=== PATIENT | female | born 1990 | race Caucasian/White ===

== ENCOUNTER 2018-08-07 14:33 | Inpatient (IN) | payer OTHER ==
[2018-08-07] MEDS ORDERED: ONDANSETRON 4 MG/2 ML VIAL IVP ONE (15:11)
[2018-08-07] MEDS ORDERED: NS 1,000 ML IV ONE ×2 (15:11→16:08)
--- NOTE | 2018-08-07 15:12 | EDPHY ---
HPI/HX/ROS/PE/MDM Narrative: CHIEF COMPLAINT: Abdominal Pain HISTORY OF PRESENT ILLNESS: This patient is a 27-year-old female with history of Crohn's disease. She presents today complaining of abdominal discomfort and persistent nausea and vomiting ongoing for the past 48 hours. Denies diarrhea. Her abdominal pain in comes in waves and she endorsees associated abdominal distention. She feels very dehydrated and tachycardic. She denies any diarrhea. Her abdominal pain feels similar to prior Crohn's exacerbations, but she does not generally vomit. She endorses subjective fever. She was diagnosed with Crohn's disease around age 14. She has history of appendectomy and bowel resection with a long period of hospitalization. She took Remicade for many years, but discontinued this several years ago. She currently does not take any daily medications. She states she has been taking ibuprofen recently for a pulled muscle in her shoulder. She denies any syncope. No chills, chest pain, diarrhea, urinary complaints, headache. REVIEW OF SYSTEMS: A comprehensive 10 system review of systems is otherwise negative aside from elements mentioned in the history of present illness and medical decision making. PAST MEDICAL HISTORY: Crohn's disease. Appendectomy and bowel resection with prolonged hospitalization. SOCIAL HISTORY: Nonsmoker. Occasional marijuana and alcohol use. No illicit drug use. GI specialist Dr. Piotr Salmon. Recently moved back to [place], three months ago. VITAL SIGNS: Reviewed by me. Tachycardic at 117. Heart rate increases to 130 when sitting up. GENERAL: Well-developed, well-nourished, resting comfortably in no respiratory distress. HEENT: Atraumatic. Eyes: No icterus, no injection. Mouth: dry mucous membranes. No erythema or lesions. Neck: supple with no adenopathy. LUNGS: Clear to auscultation bilaterally, no wheezes, rhonchi or rales. CARDIAC: Regular tachycardia, no rubs, murmurs or gallops. ABDOMEN: Soft, slight distention in the infraumbilical region. No guarding or rebound. BACK: No CVA tenderness. EXTREMITIES: No trauma. No edema. Range of motion is normal throughout. NEURO: Alert and oriented, grossly nonfocal. SKIN: Warm and dry, no rash. PSYCHIATRIC: Normal mentation, no agitation. Portions of this note were transcribed by a medical technologist hematology. I personally performed a history, physical exam, medical decision making, and confirmed accuracy of information the transcribed note. ED Course: 27 y/o female with history of Crohn's disease presents with two-day history of abdominal pain, nausea, and vomiting. On exam, the abdomen is distended, particularly in the infraumbilical region. She is tachycardic, up to 130 with small exertion, and has dry mucous membranes. Plan for abdominal x-ray. IV established. Plan for labs including CBC, chemistries, liver, lipase, UA, BHCG. Plan to administer 4mg IV Zofran and 1L IV NS for symptom relief. The patient declines any pain medications at this time and primarily requests hydration. Reviewed x-ray. Evidence of air-fluid levels suspicious for bowel obstruction. 15:58 Reassessed. Discussed further imaging to rule out bowel obstruction including CT. She is amenable to this. She is feeling somewhat better following fluid administration. 17:[address] June, radiologist. Evidence of early or partial small bowel obstruction. Evidence of recurring Crohn's disease vs enteritis. Small amount of pelvic free fluid possibly related to ovarian cystic disease. 18:46 Spoke with hospitalist service. Dr. Dominguez accepts admission for Crohn' s exacerbation with early SBO, abdominal pain, and vomiting. Patient received a dose of Solu-Medrol IV and nearly immediately had an allergic reaction with complaints of itching in her tongue as well as facial erythema and flushing. On my examination the patient has no wheezes, no facial swelling although her face is slightly flushed, and no rash. She does have a slight angioedema of the uvula and continues to complain that her tongue feels itchy. She received epinephrine 0.3 mL IM as well as Benadryl 50 mg IV. MDM: Differential diagnosis of the patient's nausea and vomiting was considered including but not limited to gastroenteritis, gastritis, alcohol intoxication, withdrawal symptoms, intraabdominal processes including pancreatitis, bowel obstruction , flare of Crohn's disease and medication side effect. - Data Points Imaging Results: Imaging Impressions Abdomen X-Ray 08/07/18 15:12 Impression: Abnormal bowel gas pattern suggestive of some submucosal edema. If there is further clinical concern regarding the patient's symptoms, contrast- enhanced CT imaging could be considered. Abdomen CT 08/07/18 16:24 Impression: 1. Early or partial small bowel obstruction. This patient might benefit from an NG tube. 2. Evidence for recurring Crohn's disease or enteritis of other etiology. 3. Small amount of pelvic free fluid possibly related to ovarian cystic disease. Might this patient have polycystic ovarian syndrome? Results discussed with Dr. Medrano at 5:50 PM. General information for patients regarding this examination can be found at [email or web address] If you have questions or comments about this report, please contact me at (hospital) or [phone] (cell). Imaging: I viewed and interpreted images myself Laboratory Results: Laboratory Results 08/07/18 15:00 08/07/18 15:00 08/07/18 08/07/18 08/07/18 15:00 15:00 15:00 WBC RBC Hgb Hct 48.9 % H % (38.0-47.0) MCV MCH MCHC RDW Plt Count MPV Neut % (Auto) Lymph % (Auto) [place] % (Auto) Eos % (Auto) Baso % (Auto) Nucleat RBC Rel Count Absolute Neuts (auto) Absolute Lymphs (auto) Absolute Monos (auto) Absolute Eos (auto) Absolute Basos (auto) Absolute Nucleated RBC Immature Gran % Immature Gran # ESR 6 MM/HR MM/HR (0-20) Sodium Potassium Chloride Carbon Dioxide Anion Gap BUN Creatinine Estimated GFR Glucose Calcium Total Bilirubin Conjugated Bilirubin Unconjugated Bilirubin AST ALT Alkaline Phosphatase C-Reactive Protein 28.2 mg/L H mg/L (<10.0) Total Protein Albumin Lipase Beta HCG, Qual Urine Color YELLOW Urine Appearance CLEAR Urine pH 5.0 (5.0-7.5) Ur Specific [place] 1.027 (1.002-1.030) Urine Protein NEGATIVE (NEGATIVE) Urine Ketones 2+ H (NEGATIVE) Urine Blood NEGATIVE (NEGATIVE) Urine Nitrate NEGATIVE (NEGATIVE) Urine Bilirubin NEGATIVE (NEGATIVE) Urine Urobilinogen NEGATIVE EU EU (0.2-1.0) Ur Leukocyte Esterase NEGATIVE (NEGATIVE) Urine RBC 3-5 /hpf H /hpf (0-3) Urine WBC 1-3 /hpf /hpf (0-3) Ur Epithelial Cells TRACE /lpf /lpf (NONE-1+) Calcium Oxalate Crystal PRESENT /hpf /hpf (NONE-1+) Uric Acid Crystals PRESENT /hpf /hpf (NONE-1+) Urine Mucus TRACE /lpf /lpf (NONE-1+) Urine Glucose NEGATIVE (NEGATIVE) 08/07/18 08/07/18 08/07/18 15:00 15:00 15:00 WBC 13.84 10^3/uL H 10^3/uL (3.80-9.50) RBC 5.15 10^6/uL 10^6/uL (4.18-5.33) Hgb 16.0 g/dL g/dL (12.6-16.3) Hct 46.7 % % (38.0-47.0) MCV 90.7 fL fL (81.5-99.8) MCH 31.1 pg pg (27.9-34.1) MCHC 34.3 g/dL g/dL (32.4-36.7) RDW 11.9 % % (11.5-15.2) Plt Count 279 10^3/uL 10^3/uL (150-400) MPV 11.2 fL fL (8.7-11.7) Neut % (Auto) 80.3 % H % (39.3-74.2) Lymph % (Auto) 12.1 % L % (15.0-45.0) [place] % (Auto) 7.2 % % (4.5-13.0) Eos % (Auto) 0.0 % L % (0.6-7.6) Baso % (Auto) 0.3 % % (0.3-1.7) Nucleat RBC Rel Count 0.0 % % (0.0-0.2) Absolute Neuts (auto) 11.12 10^3/uL H 10^3/uL (1.70-6.50) Absolute Lymphs (auto) 1.67 10^3/uL 10^3/uL (1.00-3.00) Absolute Monos (auto) 0.99 10^3/uL H 10^3/uL (0.30-0.80) Absolute Eos (auto) 0.00 10^3/uL L 10^3/uL (0.03-0.40) Absolute Basos (auto) 0.04 10^3/uL 10^3/uL (0.02-0.10) Absolute Nucleated RBC 0.00 10^3/uL 10^3/uL (0-0.01) Immature Gran % 0.1 % % (0.0-1.1) Immature Gran # 0.02 10^3/uL 10^3/uL (0.00-0.10) ESR Sodium 138 mEq/L mEq/L (135-145) Potassium 3.9 mEq/L mEq/L (3.5-5.2) Chloride 102 mEq/L mEq/L (97-110) Carbon Dioxide 22 mEq/l mEq/l (22-31) Anion Gap 14 mEq/L mEq/L (6-14) BUN 13 mg/dL mg/dL (7-23) Creatinine 0.6 mg/dL mg/dL (0.6-1.0) Estimated GFR > 60 Glucose 84 mg/dL mg/dL (70-100) Calcium 10.0 mg/dL mg/dL (8.5-10.4) Total Bilirubin 1.1 mg/dL mg/dL (0.1-1.4) Conjugated Bilirubin 0.4 mg/dL mg/dL (0.0-0.5) Unconjugated Bilirubin 0.7 mg/dL mg/dL (0.0-1.1) AST 24 IU/L IU/L (14-46) ALT 25 IU/L IU/L (9-52) Alkaline Phosphatase 91 IU/L IU/L (38-126) C-Reactive Protein Total Protein 8.0 g/dL g/dL (6.3-8.2) Albumin 5.0 g/dL g/dL (3.5-5.0) Lipase 55 IU/L IU/L (23-300) Beta HCG, Qual NEGATIVE Urine Color Urine Appearance Urine pH Ur Specific [place] Urine Protein Urine Ketones Urine Blood Urine Nitrate Urine Bilirubin Urine Urobilinogen Ur Leukocyte Esterase Urine RBC Urine WBC Ur Epithelial Cells Calcium Oxalate Crystal Uric Acid Crystals Urine Mucus Urine Glucose Medications Given: Discontinued Medications Diphenhydramine HCl (Benadryl Injection) 50 mg IVP EDNOW ONE Stop: 08/07/18 18:50 Last Admin: 08/07/18 18:53 Dose: 50 mg Epinephrine HCl (Epinephrine) 0.3 mg IM EDNOW ONE Stop: 08/07/18 18:54 Last Admin: 08/07/18 19:00 Dose: 0.3 mg Sodium Chloride (Ns) 1,000 mls @ 0 mls/hr IV EDNOW ONE; Wide Open PRN Reason: Protocol Stop: 08/07/18 15:12 Last Admin: 08/07/18 15:33 Dose: 1,000 mls Sodium Chloride (Ns) 1,000 mls @ 0 mls/hr IV ONCE ONE; Wide Open PRN Reason: Protocol Stop: 08/07/18 16:09 Last Admin: 08/07/18 16:34 Dose: 1,000 mls Methylprednisolone Sodium Succinate (Solu-Medrol) 125 mg IVP EDNOW ONE Stop: 08/07/18 18:22 Last Admin: 08/07/18 18:40 Dose: 125 mg Ondansetron HCl (Zofran) 4 mg IVP EDNOW ONE Stop: 08/07/18 15:12 Last Admin: 08/07/18 15:33 Dose: 4 mg General Time Seen by Provider: 08/07/18 14:59 Initial Vital Signs: Initial Vital Signs Temperature (C) 36.6 C 08/07/18 14:43 Heart Rate 117 H 08/07/18 14:43 Respiratory Rate 20 08/07/18 14:43 Blood Pressure 115/86 H 08/07/18 14:43 O2 Sat (%) 99 08/07/18 14:43 O2 Delivery Mode Room Air Allergies/Adverse Reactions: methylprednisolone [From Solu-Medrol] Allergy (Severe, Verified 08/07/18 21:09) Swelling/neck,face,throat Home Medications: Medication Instructions Recorded Amphet Asp and D/Amphet [Adderall 1 tab PO DAILY PRN 08/07/18 10 MG (*)] Departure - Departure Disposition: [facility] [place] [facility] Acute Clinical Impression: Crohns disease Qualifiers: Gastrointestinal tract location: small intestine Digestive disease complication type: with intestinal obstruction Qualified Code(s): K50.012 - Crohn's disease of small intestine with intestinal obstruction Vomiting Qualifiers: Vomiting type: unspecified Vomiting Intractability: non-intractable Nausea presence: with nausea Qualified Code(s): R11.2 - Nausea with vomiting, unspecified Abdominal pain Qualifiers: Abdominal location: generalized Qualified Code(s): R10.84 - Generalized abdominal pain Condition: Fair Report Scribed for: Era Medrano Report Scribed by: Sheryl Crouch Date of Report: 08/07/18 Time of Report: 15:12
[2018-08-07 15:19] LABS: PLATELET COUNT 279 10^3/uL (150-400)
[2018-08-07] MEDS ORDERED: IOHEXOL 300 mgI/ML (OMNIPAQUE) 150 ML BTL IV ONE (16:26)
[2018-08-07] MEDS ORDERED: methylPREDNISolone SOD SUCC 125 MG/2 ML VIAL IVP ONE (18:21)
[2018-08-07] MEDS ORDERED: EPINEPHrine 1 MG/ML INJ IM ONE (18:53)
[2018-08-07] MEDS ORDERED: HYDROmorphONE/DILAUDID 1 MG/ML INJ IVP PRN (19:27)
[2018-08-07] MEDS ORDERED: ONDANSETRON DISINTEGRATING 4 MG TAB PO PRN (19:27)
[2018-08-07] MEDS ORDERED: ONDANSETRON 4 MG/2 ML VIAL IVP PRN (19:27)
[2018-08-07] MEDS ORDERED: ACETAMINOPHEN 325 MG TAB PO PRN (19:27)
[2018-08-07] MEDS ORDERED: ADDERALL 10 MG TAB PO PRN (19:30)
[2018-08-07] MEDS ORDERED: NS 1,000 ML IV SCH (19:30)
[2018-08-07] MEDS ORDERED: PROMETHAZINE HCL 25 MG/ML INJ IVP PRN (19:32)
--- NOTE | 2018-08-07 19:42 | PDGENHP ---
<Marianne Gonzalez - Last Filed: 08/07/18 19:58> History and Physical - Chief Complaint Abdominal pain, nausea, vomiting - History of Present Illness HPI: 27 y/o female with history of Crohn's disease presents to the emergency room after 2 days worth of abdominal pain, nausea, and vomiting. She reports these are similar symptoms to when she has a Crohn's flare however this time around she is vomiting which is new to her. She does not take any medications for her Crohn's disease, was on Remicade for years but has discontinued use several years ago. She recently took ibuprofen for an injured shoulder but doesn't believe this would be causing her symptoms. Her abdominal pain which is described as cramping comes in waves and when it comes, it is very intense. Unable to keep anything down fluid-young and has not had much to eat for 2 days. Denies hematemesis. Denies chest pains, palpitations, SOB, diarrhea, fevers, chills, dysuria. Endorses normal menstrual cycles and BMs. She is being admitted for observation and conservative treatment. Past Medical History 1. Crohn's disease (diagnosed when she was 14 y/o) Past Surgical History 1. Appendectomy and partial colon removal s/p Crohn's diagnosis when she was 14 y/o Social 1. Recently moved back to [place] from [place] 3 months ago. 2. Travels for work, can work remotely 3. Denies tobacco or illicit drug use. Rarely drinks alcohol. History Information - Allergies/Home Medication List Allergies/Adverse Reactions: methylprednisolone [From Solu-Medrol] Adverse Reaction (Verified 08/07/18 19:35) Swelling/neck,face,throat Home Medications: Amphet Asp and D/Amphet [Adderall 10 MG (*)] 1 tab PO DAILY PRN 08/07/18 [Last Taken Unknown] I have personally reviewed and updated: family history, medical history, social history, surgical history Past Medical History: See HPI list - Surgical History Additional surgical history: See HPI list - Family History Positive for: non-pertinent - Social History Smoking Status: Never smoked Alcohol Use: Rarely Drug Use: Marijuana Review of Systems Review of Systems: ROS: 10pt was reviewed & negative except for what was stated in HPI & below Constitutional: Reports: malaise, recent illness EENMT: Reports: no symptoms Cardiac: Reports: no symptoms Respiratory: Reports: no symptoms Gastrointestinal: Reports: vomitting, abdominal pain, abdominal distention, nausea Genitourinary: Reports: no symptoms Muscolosketal: Reports: no symptoms Skin: Reports: no symptoms Neurological: Reports: no symptoms Hematologic/Lymphatic: Reports: no symptoms Immunologic/Allergy: Reports: other (Solu-medrol) Physical Exam Physical Exam: Lab data and imaging were reviewed. Case discussed with admitting physician, Dr. Franky Dominguez. WBC: 13.[address]: early or partial bowel obstruction. Evidence for recurring Crohn' s disease or enteritis. Small amount of pelvic free fluid possibly related to ovarian cystic disease. Temp Pulse Resp BP Pulse Ox 36.6 C 122 H 18 122/77 H 97 08/07/18 14:43 08/07/18 18:45 08/07/18 18:45 08/07/18 18:45 08/07/18 18:45 Constitutional: no apparent distress, appears nourished, uncomfortable, other ( Diaphoretic) Eyes: PERRL, anicteric sclera, EOMI Ears, Nose, Mouth, Throat: hearing normal, ears appear normal, no oral mucosal ulcers, dry mucous membranes Cardiovascular: regular rate and rhythym, no murmur, rub, or gallop, tachycardia Peripheral Pulses: 2+: dorsalis-pedis (R) (Radial 2+), dorsalis-pedis (L) ( Radial 2+) Respiratory: no respiratory distress, no rales or rhonchi, clear to auscultation Gastrointestinal: normoactive bowel sounds, tenderness, distension Genitourinary: no bladder fullness, no bladder tenderness Skin: warm, normal color, no rashes or abrasions, no fluctuance, no induration, No mottled Musculoskeletal: full muscle strength, no muscle tenderness, normal joint ROM, no joint effusions Neurologic: AAOx3, sensation intact bilaterally, CN II-XII Intact Psychiatric: interacting appropriately, not anxious, not encephalopathic, thought process linear Lymph, Heme, Immunologic: no cervical LAD, no supraclavicular LAD Lab Data & Imaging Review 08/07/18 15:00 08/07/18 15:00 WBC 13.84 10^3/uL (3.80-9.50) H 08/07/18 15:00 RBC 5.15 10^6/uL (4.18-5.33) 08/07/18 15:00 Hgb 16.0 g/dL (12.6-16.3) 08/07/18 15:00 Hct 46.7 % (38.0-47.0) 08/07/18 15:00 MCV 90.7 fL (81.5-99.8) 08/07/18 15:00 MCH 31.1 pg (27.9-34.1) 08/07/18 15:00 MCHC 34.3 g/dL (32.4-36.7) 08/07/18 15:00 RDW 11.9 % (11.5-15.2) 08/07/18 15:00 Plt Count 279 10^3/uL (150-400) 08/07/18 15:00 MPV 11.2 fL (8.7-11.7) 08/07/18 15:00 Neut % (Auto) 80.3 % (39.3-74.2) H 08/07/18 15:00 Lymph % (Auto) 12.1 % (15.0-45.0) L 08/07/18 15:00 [place] % (Auto) 7.2 % (4.5-13.0) 08/07/18 15:00 Eos % (Auto) 0.0 % (0.6-7.6) L 08/07/18 15:00 Baso % (Auto) 0.3 % (0.3-1.7) 08/07/18 15:00 Nucleat RBC Rel Count 0.0 % (0.0-0.2) 08/07/18 15:00 Absolute Neuts (auto) 11.12 10^3/uL (1.70-6.50) H 08/07/18 15:00 Absolute Lymphs (auto) 1.67 10^3/uL (1.00-3.00) 08/07/18 15:00 Absolute Monos (auto) 0.99 10^3/uL (0.30-0.80) H 08/07/18 15:00 Absolute Eos (auto) 0.00 10^3/uL (0.03-0.40) L 08/07/18 15:00 Absolute Basos (auto) 0.04 10^3/uL (0.02-0.10) 08/07/18 15:00 Absolute Nucleated RBC 0.00 10^3/uL (0-0.01) 08/07/18 15:00 Immature Gran % 0.1 % (0.0-1.1) 08/07/18 15:00 Immature Gran # 0.02 10^3/uL (0.00-0.10) 08/07/18 15:00 Sodium 138 mEq/L (135-145) 08/07/18 15:00 Potassium 3.9 mEq/L (3.5-5.2) 08/07/18 15:00 Chloride 102 mEq/L (97-110) 08/07/18 15:00 Carbon Dioxide 22 mEq/l (22-31) 08/07/18 15:00 Anion Gap 14 mEq/L (6-14) 08/07/18 15:00 BUN 13 mg/dL (7-23) 08/07/18 15:00 Creatinine 0.6 mg/dL (0.6-1.0) 08/07/18 15:00 Estimated GFR > 60 08/07/18 15:00 Glucose 84 mg/dL (70-100) 08/07/18 15:00 Calcium 10.0 mg/dL (8.5-10.4) 08/07/18 15:00 Total Bilirubin 1.1 mg/dL (0.1-1.4) 08/07/18 15:00 Conjugated Bilirubin 0.4 mg/dL (0.0-0.5) 08/07/18 15:00 Unconjugated Bilirubin 0.7 mg/dL (0.0-1.1) 08/07/18 15:00 AST 24 IU/L (14-46) 08/07/18 15:00 ALT 25 IU/L (9-52) 08/07/18 15:00 Alkaline Phosphatase 91 IU/L (38-126) 08/07/18 15:00 Total Protein 8.0 g/dL (6.3-8.2) 08/07/18 15:00 Albumin 5.0 g/dL (3.5-5.0) 08/07/18 15:00 Lipase 55 IU/L (23-300) 08/07/18 15:00 Beta HCG, Qual NEGATIVE 08/07/18 15:00 Urine Color YELLOW 08/07/18 15:00 Urine Appearance CLEAR 08/07/18 15:00 Urine pH 5.0 (5.0-7.5) 08/07/18 15:00 Ur Specific [place] 1.027 (1.002-1.030) 08/07/18 15:00 Urine Protein NEGATIVE (NEGATIVE) 08/07/18 15:00 Urine Ketones 2+ (NEGATIVE) H 08/07/18 15:00 Urine Blood NEGATIVE (NEGATIVE) 08/07/18 15:00 Urine Nitrate NEGATIVE (NEGATIVE) 08/07/18 15:00 Urine Bilirubin NEGATIVE (NEGATIVE) 08/07/18 15:00 Urine Urobilinogen NEGATIVE EU (0.2-1.0) 08/07/18 15:00 Ur Leukocyte Esterase NEGATIVE (NEGATIVE) 08/07/18 15:00 Urine RBC 3-5 /hpf (0-3) H 08/07/18 15:00 Urine WBC 1-3 /hpf (0-3) 08/07/18 15:00 Ur Epithelial Cells TRACE /lpf (NONE-1+) 08/07/18 15:00 Calcium Oxalate Crystal PRESENT /hpf (NONE-1+) 08/07/18 15:00 Uric Acid Crystals PRESENT /hpf (NONE-1+) 08/07/18 15:00 Urine Mucus TRACE /lpf (NONE-1+) 08/07/18 15:00 Urine Glucose NEGATIVE (NEGATIVE) 08/07/18 15:00 Assessment & Plan Plan: This is a 27 y/o female with history of Crohn's disease presenting to the ER after enduring a 2-day worth stint of intermittent abdominal pain which is described as cramping mostly to the lower abdominal quadrants, nausea and vomiting; she is unable to keep anything down. 1. Abdominal pain: suspected Crohn's flare up vs SBO vs ovarian cysts -NPO, ok with ice chips. Assess her throughout the night and if she is improving, may advance diet to clears -She received Solu-medrol in ER however it appears she had an allergic reaction to this as she reports her tongue started to tingle and swell. She was given IVP Benadryl and IM Epi; her allergic reaction symptoms have resolved. No difficulty swallowing. Continue to monitor. Pain management PO/IVP PRN. -Hot packs -Consider consulting ob-well service floor worker for her multiple ovarian cysts should her symptoms not resolve; per pt, menstrual cycles have been normal. 2. Nausea and vomiting -Received 4 mg Zofran in ER; continue anti-emetics PRN -Received 2L NS in ER; continue IVF -Mild leukocytosis (13.84), afebrile, tachycardic --I do not think she has an infectious process taking place but instead a reactive process. Her tachycardia most likely is d/t fluid loss. Will replace and recheck CBC/BMP tomorrow. Diet: NPO for now VTE ppx: Up ad lyle in room Code: Full Dispo: Admit to obs <Franky Dominguez - Last Filed: 08/07/18 20:48> History and Physical - History of Present Illness Review of Systems Review of Systems: Physical Exam Physical Exam: Temp Pulse Resp BP Pulse Ox 36.6 C 100 16 94/46 L 95 08/07/18 14:43 08/07/18 20:07 08/07/18 20:07 08/07/18 20:07 08/07/18 20:07 Lab Data & Imaging Review 08/07/18 15:00 08/07/18 15:00 WBC 13.84 10^3/uL (3.80-9.50) H 08/07/18 15:00 RBC 5.15 10^6/uL (4.18-5.33) 08/07/18 15:00 Hgb 16.0 g/dL (12.6-16.3) 08/07/18 15:00 Hct 46.7 % (38.0-47.0) 08/07/18 15:00 MCV 90.7 fL (81.5-99.8) 08/07/18 15:00 MCH 31.1 pg (27.9-34.1) 08/07/18 15:00 MCHC 34.3 g/dL (32.4-36.7) 08/07/18 15:00 RDW 11.9 % (11.5-15.2) 08/07/18 15:00 Plt Count 279 10^3/uL (150-400) 08/07/18 15:00 MPV 11.2 fL (8.7-11.7) 08/07/18 15:00 Neut % (Auto) 80.3 % (39.3-74.2) H 08/07/18 15:00 Lymph % (Auto) 12.1 % (15.0-45.0) L 08/07/18 15:00 [place] % (Auto) 7.2 % (4.5-13.0) 08/07/18 15:00 Eos % (Auto) 0.0 % (0.6-7.6) L 08/07/18 15:00 Baso % (Auto) 0.3 % (0.3-1.7) 08/07/18 15:00 Nucleat RBC Rel Count 0.0 % (0.0-0.2) 08/07/18 15:00 Absolute Neuts (auto) 11.12 10^3/uL (1.70-6.50) H 08/07/18 15:00 Absolute Lymphs (auto) 1.67 10^3/uL (1.00-3.00) 08/07/18 15:00 Absolute Monos (auto) 0.99 10^3/uL (0.30-0.80) H 08/07/18 15:00 Absolute Eos (auto) 0.00 10^3/uL (0.03-0.40) L 08/07/18 15:00 Absolute Basos (auto) 0.04 10^3/uL (0.02-0.10) 08/07/18 15:00 Absolute Nucleated RBC 0.00 10^3/uL (0-0.01) 08/07/18 15:00 Immature Gran % 0.1 % (0.0-1.1) 08/07/18 15:00 Immature Gran # 0.02 10^3/uL (0.00-0.10) 08/07/18 15:00 Sodium 138 mEq/L (135-145) 08/07/18 15:00 Potassium 3.9 mEq/L (3.5-5.2) 08/07/18 15:00 Chloride 102 mEq/L (97-110) 08/07/18 15:00 Carbon Dioxide 22 mEq/l (22-31) 08/07/18 15:00 Anion Gap 14 mEq/L (6-14) 08/07/18 15:00 BUN 13 mg/dL (7-23) 08/07/18 15:00 Creatinine 0.6 mg/dL (0.6-1.0) 08/07/18 15:00 Estimated GFR > 60 08/07/18 15:00 Glucose 84 mg/dL (70-100) 08/07/18 15:00 Calcium 10.0 mg/dL (8.5-10.4) 08/07/18 15:00 Total Bilirubin 1.1 mg/dL (0.1-1.4) 08/07/18 15:00 Conjugated Bilirubin 0.4 mg/dL (0.0-0.5) 08/07/18 15:00 Unconjugated Bilirubin 0.7 mg/dL (0.0-1.1) 08/07/18 15:00 AST 24 IU/L (14-46) 08/07/18 15:00 ALT 25 IU/L (9-52) 08/07/18 15:00 Alkaline Phosphatase 91 IU/L (38-126) 08/07/18 15:00 Total Protein 8.0 g/dL (6.3-8.2) 08/07/18 15:00 Albumin 5.0 g/dL (3.5-5.0) 08/07/18 15:00 Lipase 55 IU/L (23-300) 08/07/18 15:00 Beta HCG, Qual NEGATIVE 08/07/18 15:00 Urine Color YELLOW 08/07/18 15:00 Urine Appearance CLEAR 08/07/18 15:00 Urine pH 5.0 (5.0-7.5) 08/07/18 15:00 Ur Specific Pec[place]iar 1.027 (1.002-1.030) 08/07/18 15:00 Urine Protein NEGATIVE (NEGATIVE) 08/07/18 15:00 Urine Ketones 2+ (NEGATIVE) H 08/07/18 15:00 Urine Blood NEGATIVE (NEGATIVE) 08/07/18 15:00 Urine Nitrate NEGATIVE (NEGATIVE) 08/07/18 15:00 Urine Bilirubin NEGATIVE (NEGATIVE) 08/07/18 15:00 Urine Urobilinogen NEGATIVE EU (0.2-1.0) 08/07/18 15:00 Ur Leukocyte Esterase NEGATIVE (NEGATIVE) 08/07/18 15:00 Urine RBC 3-5 /hpf (0-3) H 08/07/18 15:00 Urine WBC 1-3 /hpf (0-3) 08/07/18 15:00 Ur Epithelial Cells TRACE /lpf (NONE-1+) 08/07/18 15:00 Calcium Oxalate Crystal PRESENT /hpf (NONE-1+) 08/07/18 15:00 Uric Acid Crystals PRESENT /hpf (NONE-1+) 08/07/18 15:00 Urine Mucus TRACE /lpf (NONE-1+) 08/07/18 15:00 Urine Glucose NEGATIVE (NEGATIVE) 08/07/18 15:00 Assessment & Plan Plan: Chart reviewed, patient personally examined, and case discussed with Era Gonzalez NP. Agree with her plan as outlined above. Please see my separate note for additional details.
--- NOTE | 2018-08-07 20:39 | HOSPPROG ---
Hospitalist Progress Note Assessment/Plan: Case discussed with Era Gonzalez NP and I agree with her plan with the following exceptions: Briefly, 27yo F with Crohn's disease s/p remote colonic resection not currently on therapy presents with 2-3 of acute onset abdominal pain, distention, nausea and vomiting. No diarrhea or blood in stools. No fevers. Unable to tolerate PO. Exam with distended and tender but not peritoneal abdomen. She is tachycardic but afebrile and normotensive. Labs show leukocytosis with normal hemoglobin, BMP, and LFTs. CT shows small bowel inflammation, dilated loops of small bowel with some free fluid in the pelvis, and shotty mesenteric adenopathy. She also has some ovarian cysts. In the ED, she was given 125mg IV solumedrol (which she ? had reaction - tongue itching and flushing- and was given benadryl and IM epinephrine). 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 Assessment/Plan: 27yo w/Crohn's not on therapy here with suspected acute Crohn's flare complicated by ileus. 1. Acute Crohn's flare: Will start solumedrol IV 60mg q6h tomorrow (I do not think she had a true allergic reaction to this). GI consultation in AM. Check ESR/CRP. 2. Ileus: Bowel rest. IVF. If not improving, would place NG tube. 3. Abdominal pain, nausea/vomiting: Related to above. Pain and nausea control PRN. 4. Ovarian cysts: Unlikely to be related to above symptoms. Normal menstrual cycles. Outpatient follow up. 5. SIRS syndrome: Related to #1. Monitor vitals, WBC. No indication for abx. VTE ppx: SCDs Diet: NPO except sips/chips Dispo: Admit under observation Objective: Vital Signs Temp Pulse Resp BP Pulse Ox 36.6 C 100 16 94/46 L 95 08/07/18 14:43 08/07/18 20:07 08/07/18 20:07 08/07/18 20:07 08/07/18 20:07 ICD10 Worksheet Patient Problems: Problems Problem Status Onset Crohn's colitis Acute - ICD10 Problem Qualifiers (1) Crohn's colitis
[2018-08-08 06:21] LABS: PLATELET COUNT 185 10^3/uL (150-400)
[2018-08-08] MEDS ORDERED: methylPREDNISolone SOD SUCC 125 MG/2 ML VIAL IVP SCH (08:00)
--- NOTE | 2018-08-08 14:47 | HOSPPROG ---
Hospitalist Progress Note Assessment/Plan: Viky is a 27 y/o s/p colonic resection who presented w abdominal pain, distention, nausea. She has a hx of Crohns. She was unable to tolerate any PO. Today she is tolerating clear liquids and wants to go home, will do a trial of a regular diet and see how she does. She is tearful and wants to go home because it is her birthday tomorrow. Will see how she does with a regular diet. Spoke w Dr Bhatt who would like her monitored overnight. He would like to see her and be sure she has follow up. Has not seen a career based intervention coordinator in 2 years. *Acute Crohn's flare -solumedrol IV 60mg q6h (this had not been given due to concern she had an allergic reaction in the ER to the Solumedrol) -will dc and start prednisone 40 mg now *tachycardia -resolved * Ileus -has hypoactive bowel sounds, but eating clears without difficulty *Abdominal pain, nausea/vomiting -none further, could be multifactorial r/t Crohn and ovarian cysts *plan: reviewed her care w Dr Bhatt, he will see her today. She needs another midnight stay to be sure she can eat and drink without pain. will dc iv solumedrol, start oral prednisone, dc fluids. I told Viky I will see her early tomorrow and if stable, will dc due to it being her birthday. Subjective: Viky said her abdominal pain has resolved. Objective: Vital Signs Temp Pulse Resp BP Pulse Ox 36.6 C 81 16 103/66 100 08/08/18 11:25 08/08/18 11:25 08/08/18 11:25 08/08/18 11:25 08/08/18 11:25 Laboratory Results 08/08/18 05:48 08/08/18 05:48 - Physical Exam Constitutional: no apparent distress, appears nourished, not in pain Eyes: PERRL Ears, Nose, Mouth, Throat: hearing normal Cardiovascular: regular rate and rhythym Respiratory: no respiratory distress Gastrointestinal: soft, non-tender abdomen, No normoactive bowel sounds ( hypoactive) Skin: warm Musculoskeletal: full muscle strength Neurologic: AAOx3 Psychiatric: interacting appropriately ICD10 Worksheet Patient Problems: Problems Problem Status Onset Abdominal pain Acute Crohn's colitis Acute Crohns disease Acute Vomiting Acute
--- NOTE | 2018-08-08 15:49 | ASMTCMCOM ---
CM Note CM Note Notes: Pt is a 27 y/o female admitted for abdominal pain, nausea and vomiting. Pt will d/c independent when medically stable. No therapies ordered at this time. CM available for changes. Plan: Independent Date Signed: 08/08/2018 03:48 PM Electronically Signed By:LOLITA Lind
[2018-08-08] MEDS: predniSONE 20 MG TAB PO SCH (16:53)
--- NOTE | 2018-08-08 17:35 | PDMN ---
Medical Necessity Medical necessity: Change to inpt as of 08/08/18 @ 16:26 per MD order and MCG M- 200, Ileus, 2 days. 27 y/o w/hx Crohn's and colonic resection presented w/abd pain, distention, nausea, and unable to tolerate PO, admitted w/Crohn's flare. Upgraded to inpt for presence of ileus and still unable to tolerate PO, ongoing med nec care, est LOS>2MN.
--- NOTE | 2018-08-08 18:28 | SOAPPROG ---
[facility] Progress Note Assessment/Plan: Assessment:Plan: 08/08/18 18:24 see full dictated consult to follow 27 y/o with hx Crohns of her SB x 12-13 years - had TI resection at dx then did wll on Remicade for years stopped secondary to infections now off x 1 year with recurrence of SBO she is in denial and isn't very accepting of the meds needed to treat her dz doesn't sound like she has any good support from her family lives with her boyfriend PO prednisone she needs to research biologics such as Entyvio, Stelara, Humira there are many ways to try to decrease side effects from biologics if she will accept their use asked her to go to www.ccfa.org to start her research I am not optimistic that she will be able to change her thinking about her dz process in the near future will follow Michael Laboy MD [phone] Objective: Vital Signs Temp Pulse Resp BP Pulse Ox 36.7 C 82 16 116/62 98 08/08/18 15:18 08/08/18 15:18 08/08/18 15:18 08/08/18 15:18 08/08/18 15:18 ICD10 Worksheet Patient Problems: Problems Problem Status Onset Abdominal pain Acute Crohn's colitis Acute Crohns disease Acute Vomiting Acute
[2018-08-09 09:08] VITALS: BP 104/73
--- NOTE | 2018-08-09 09:30 | HOSPPROG ---
Hospitalist Progress Note Assessment/Plan: Viky is a 27 y/o s/p colonic resection who presented w abdominal pain, distention, nausea. She has a hx of Crohns. She was unable to tolerate any PO. Today she is tolerating a regular diet *Acute Crohn's flare, small bowel -solumedrol IV 60mg q6h (this had not been given due to concern she had an allergic reaction in the ER to the Solumedrol) -tolerating prednisone - dc on a slow taper -script for Apriso sent to the pharmacy *tachycardia -resolved * Ileus -resolved *Abdominal pain, nausea/vomiting -none further, could be multifactorial r/t Crohn and ovarian cysts *plan: Dr Bhatt and myself met henok Salmon this morning reviewing w her the importance of addressing her disease, she has been tearful. Hoping she will f/ u. Will place her on a slow steroid wean and Subjective: Viky isn't having pain. Objective: Vital Signs Temp Pulse Resp BP Pulse Ox 36.9 C 63 12 104/73 99 08/09/18 08:00 08/09/18 08:00 08/09/18 08:00 08/09/18 08:00 08/09/18 08:00 08/08/18 08/09/18 08/10/18 05:59 05:59 05:59 Intake Total 250 Balance 250 - Physical Exam Constitutional: no apparent distress, appears nourished, not in pain Eyes: PERRL Ears, Nose, Mouth, Throat: ears appear normal Respiratory: no respiratory distress Gastrointestinal: normoactive bowel sounds, soft, non-tender abdomen Skin: warm Musculoskeletal: full muscle strength Neurologic: AAOx3 Psychiatric: interacting appropriately ICD10 Worksheet Patient Problems: Problems Problem Status Onset Abdominal pain Acute Crohn's colitis Acute Crohns disease Acute Vomiting Acute
[2018-08-09] MEDS: predniSONE 20 MG TAB PO SCH (09:59)
--- NOTE | 2018-08-09 10:32 | SOAPPROG ---
[facility] Progress Note Assessment/Plan: Assessment:Plan: 1) SB Crohn's - oral Prednisone at 40mg taper by 10mg per week of no sx's to 20mg then by 5 mg increments. Start mesalamine mesd - Pentasa best SB med but $$ $ and QID. Apriso 4 tabs once daily or Asacol tid. She does need biologics but hesitant secondary to her previous side effects. I asked her to research on [email or web address] and talk to me at office appt. Entyvio maybe a good choice for her but we could use the TNF's and check drug levels or Stelara 2) diet - regular - avoid raw vegies for now 3) dispo - maybe home today . I will hvae my office call her and schedule appt within few weeks. discussed with Meghna Moore 08/09/18 10:29 Subjective: CC- SBO from Crohn's feeling better, tolerating solid food w/o sig issue Objective: Vital Signs Temp Pulse Resp BP Pulse Ox 36.9 C 63 12 104/73 99 08/09/18 08:00 08/09/18 08:00 08/09/18 08:00 08/09/18 08:00 08/09/18 08:00 08/08/18 08/09/18 08/10/18 05:59 05:59 05:59 Intake Total 250 Balance 250 A+Ox3 CTA S1S2 +BS, soft still with some right sided tenderness no r/g ICD10 Worksheet Patient Problems: Problems Problem Status Onset Abdominal pain Acute Crohn's colitis Acute Crohns disease Acute Vomiting Acute
--- NOTE | 2018-08-09 12:23 | GDS ---
[f rep st] DISCHARGE SUMMARY DISCHARGE DIAGNOSES: 1. Acute Crohn flare of the small bowel. 2. Tachycardia. 3. Ileus. 4. Abdominal pain with associated nausea and vomiting. CONSULTATIONS: Michael Bhatt MD. HOSPITAL COURSE: Briefly, the patient is a very sweet 28-year-old female, who has a history of Crohn disease. She presented to the emergency room after 2 days with abdominal pain, nausea, and vomiting. These symptoms are similar to when she had a Crohn flare. She does not take any medications. She had been on Remicade in the past, but discontinued use of this because she kept getting recurrent infections. She was seen and evaluated by Dr. Bhatt. He recommended that she do an oral prednisone taper. He also will start her on Apriso tablets. She definitely needs biologics, but she has been scared due to the previous side effects. Dr. Bhatt has given her a website to look at. She could consider Entyvio or Stelara for treatment. I have written all this out for her in detail. She needs followup with Dr. Bhatt. HOSPITAL COURSE PER PROBLEM: 1. Acute Crohn flare. She was given a dose of Solu-Medrol in the emergency room. There was concern she had an allergic reaction. She became red and tachycardic, and felt her tongue had thickened. This was stopped. She is on oral prednisone. She has done well with this. She will be on Apriso. 2. Tachycardia, resolved. 3. Ileus, resolved. 4. Abdominal pain with associated nausea and vomiting, resolved. DISCHARGE CONDITION: Stable. VITAL SIGNS: Blood pressure is 104/73, heart rate 63, respiratory rate 12, O2 saturation on room air 99%, and temperature 36.9 Celsius. MEDICATIONS AT DISCHARGE: Please see the EMR. DISCHARGE INSTRUCTIONS: 1. Avoid a high-fiber diet, in particular fresh vegetables. 2. Wean slowly down the prednisone. 3. Follow up closely with Dr. Bhatt. TIME SPENT ON DISCHARGE: Greater than 30 minutes meeting and discussing the patient's care. /[id number]/MODL MTDD
--- NOTE | 2018-08-10 09:00 | GCON ---
[f rep st] CONSULTATION DATE OF CONSULTATION: 08/08/2018 REFERRING PHYSICIAN: Meghna Moore NP INDICATION FOR CONSULTATION: Crohn disease with recurrent small-bowel obstruction, abdominal pain, abnormal imaging. HISTORY OF PRESENT ILLNESS: I have been asked by Meghna Moore to see the patient in consultation for chief complaint of recurrent Crohn disease. The patient is a pleasant 27-year-old female who had Crohn disease diagnosed when she was about 14 or 15 years old. At that point, she was initially treated with terminal ileal and cecal resection and then she was placed on Remicade. She does not remember being on steroids, mesalamine, immunomodulators. She was on Remicade for many years and had very good control of her disease. However, she developed many different infections, the worst which were continued bacterial vaginosis. She had a history of abnormal cells on her cervix, status post a LEEP procedure and she was very concerned about these recurrent infections and therefore stopped the Remicade approximately a year ago. She did not have any symptoms until she presented with symptoms of obstruction. She had been on Remicade for a number of years. She presented to the emergency room and had a CT scan that showed recurrent small-bowel obstruction. She was admitted and had rapid response to steroids and I am called to help evaluate and treat her recurrent Crohn disease. PAST MEDICAL HISTORY: Crohn disease diagnosed when she was age 14. PAST SURGICAL HISTORY: Initial appendectomy and then a partial colon removal with terminal ileum and cecum/ascending colon. FAMILY HISTORY: No first degree relatives with any inflammatory bowel disease. She says she is not very close to her family. MEDICATIONS: Medications as an outpatient were essentially nothing. As an outpatient, Adderall. Inpatient, Tylenol p.r.n., Adderall 10 mg p.r.n., Dilaudid p.r.n., Zofran p.r.n., IV Solu-Medrol she got in the ER and I have asked the hospitalist to start prednisone. ALLERGIES: She had some possible reactions to Solu-Medrol in the emergency room but I am not sure if it was truly an allergic reaction. SOCIAL HISTORY: She does not smoke. She rarely drinks alcohol. She recently moved back to [place] from [place]. REVIEW OF SYSTEMS: A complete review of systems was performed and is negative other than in the HPI. Pertinent positives include abdominal pain, nausea, vomiting related to a bowel obstruction. PHYSICAL EXAM: GENERAL: Well-developed, well-nourished young female in no acute distress. VITAL SIGNS: Blood pressure is 105/60, pulse is 81, respiratory rate 18, she is 94% on room air, temperature 36.7. EYES: Anicteric. JOSELITO, EOMI. MOUTH: No lesions. Moist mucous membranes. NECK: Supple. Full range of motion. No JVD. BACK: No spine tenderness. No CVA tenderness. LUNGS: Clear to auscultation. CARDIAC: S1, S2. Regular rate and rhythm. No murmurs, rubs or gallops appreciated. ABDOMEN: Bowel sounds are normal pitch and frequency, soft with right lower quadrant epigastric tenderness. No rebound, no guarding. No hepatosplenomegaly. EXTREMITIES: No cyanosis, clubbing, edema. NEUROLOGIC: Cranial nerves intact. Nonfocal. PSYCHIATRIC: She is very emotional discussing her disease process and seems not to want to have this disease but does not understand this is relapsing remitting disease that she is going to need to treat aggressively. LABORATORY DATA: From August 08: WBC 6.38, hemoglobin 11.7, hematocrit 34.6 , platelet count is 185. On admission, WBC was 13.84, hemoglobin 16, hematocrit 46.4 From the : Sodium 137, potassium 4.5, chloride 112, bicarb 19, BUN 14, creatinine 0.5, glucose 115, calcium 8.2. From the : AST 24, ALT 25, alkaline phosphatase 91, bilirubin 1.1 with conjugated 0.4. C- reactive protein was elevated at 28.2, albumin is 5.0, total protein is 8.0, lipase is 55. HCG is negative. The CT scan from August 07 reveals early partial small-bowel obstruction with dilated loops of small bowel in the left abdomen measuring up to 4.4 cm. There was no free air. There is a surgical anastomosis in the region of the terminal ileum, ascending colon, shotty mesenteric noncalcified noncystic adenopathy. Multiple small cysts in each ovary. Urinary bladder looks normal. ASSESSMENT: Recurrent Crohn disease with small-bowel obstruction, abdominal pain, nausea, vomiting. RECOMMENDATIONS: 1. Prednisone 40 mg daily. 2. If she tolerates oral diet, she might be able to be discharged tomorrow. 3. I have asked her to research on www.[facility]FA.org, the [facility] [employer] [employer] [facility] [place] website. I do believe that she will need biologic therapy given small bowel Crohn disease that she developed when she was a child. 4. Her choices of biologics include Remicade which she was on and Entyvio or Stelara which are different agents then the TNF biologic which she was on. 5. Her infections may have been related to supratherapeutic levels of Remicade. She does not remember them ever being checked, however, Entyvio supposedly is much more specific for the gut and may be a better choice for her with less extraintestinal side affects. 6. Psychosocial support. It seems that she does not have a very good support system. She does live with her boyfriend, but she says that she does not get along with her family and she is quite tearful during this conversation. I think clearly she is in denial and does not want to have this disease. Unfortunately, this is a relapsing disease and if she does not treat appropriately, I feel that she will have recurrent admissions and recurrent surgeries and end up with significant complications related to that. 7. Further recommendations to follow above. 8. I have discussed this with Meghna Moore. Thank you for allowing me to participate in this patient's healthcare. Do not hesitate to call me if you have any questions. /[id number]/MODL MTDD
== END 2018-08-09 11:59 | disposition home or self-care (01) | DRG 386 ==
LOC: F3E 21:18 → OBSVTOIN 08-08 16:26
PROVIDERS: ADMIT Internal Medicine; ATTEND Internal Medicine
DX: K50.012 Crohn's disease of small intestine with intestinal obstruction (principal); K56.7 Ileus, unspecified; R00.0 Tachycardia, unspecified; R10.84 Generalized abdominal pain; R11.2 Nausea with vomiting, unspecified; E86.0 Dehydration; T49.0X5A Adverse effect of local antifungal, anti-infective and anti-inflammatory drugs, initial encounter; L27.8 Dermatitis due to other substances taken internally; M85.819 Other specified disorders of bone density and structure, unspecified shoulder; Z90.49 Acquired absence of other specified parts of digestive tract
CPT/HCPCS: 96374; G0378; J0171; J1200; J2405; J2930; J7512; Q9967